=== PATIENT | female | born 1975 ===

== ENCOUNTER 2017-01-16 00:12 | Emergency (ER) | payer OTHER ==
[2017-01-16 00:22] VITALS: BP 116/63; PULSE 90; RESP 18; TEMP 98.2; O2SAT 100
[2017-01-16] MEDS ORDERED: Oxycodone/Acetaminophen 5/325 mg Tab PO STA (00:43)
[2017-01-16] MEDS ORDERED: Lidocaine 2% w Epi 1:100,000 Inj IJ ONE ×2 (00:45→00:54)
[2017-01-16] MEDS ORDERED: Oxycodone/Acetaminophen 5/325 mg Tab ONE (00:49)
== END 2017-01-16 02:50 | disposition home or self-care (01) ==
LOC: H.ER 00:12
DX: S01.01XA Laceration without foreign body of scalp, initial encounter (principal); Y04.2XXA Assault by strike against or bumped into by another person, initial encounter; Y93.9 Activity, unspecified; F10.10 Alcohol abuse, uncomplicated; Z23 Encounter for immunization